=== PATIENT | female | born 1970 | race American Indian/Alaskan Native ===

== ENCOUNTER 2016-09-15 14:58 | Emergency (ER) | payer BC ==
--- NOTE | 2016-09-15 18:27 | Emergency Department Report ---
Chief Complaint: Dizziness Stated Complaint: ELEVATED BP/LIGHT HEADED Time Seen by Provider: 09/15/16 18:21 - HPI History of Present Illness: Patient here for new onset headache and dizziness testing going on for 3 weeks on and off. Patient had a headache this morning but she does have a headache now and she went to her primary care physician office last week and he did lab work but the lab work is not back at. She said when she stands up she is dizzy. Denies any fever or chills, denies any numbness or tingling to extremities. Denies any nausea vomiting. She said her blood pressure has been elevated without any diagnosis of high blood pressure. - ROS Review of Systems: All systems are negative unless stated in HPI above. - Exam Vital Signs: Vital Signs 09/15/16 15:08 Temperature 98.6 F Pulse Rate 60 Blood Pressure 147/77 O2 Sat by Pulse 100 Oximetry Physical Exam: General: This is a 38-year-old female well-nourished well-developed in no acute distress. Mini-Neurological exam: Speech is clear and fluent, no facial drooping, normal gait. GCS of 15 the patient is alert and oriented 3 MSE screening note: Focused history and physical exam performed. Due to findings the following was ordered:[facility] ED Medical Decision Making - Medical Decision Making Medical decision making: Patient medical screened by provider and appropriate labs and diagnostic tests ordered. She is stable waiting to see a provider. ED Disposition for MSE Condition: Stable Referrals: PRIMARY CARE [Primary Care Provider] - 3-5 Days
[2016-09-15 18:38] LABS: Basophils % (Auto) 0.6 % (0.0-1.8); Eosinophils % (Auto) 2.1 % (0.0-4.3); Hematocrit 42.6 % (30.3-42.9); Hemoglobin 13.9 gm/dl (10.1-14.3); Mean Corpuscular HGB Conc 33 % (30-34); Mean Corpuscular Volume 77 fl (79-97); Platelet Count 222 K/mm3 (140-440); Red Blood Count 5.53 M/mm3 (3.65-5.03); Red Cell Distribution Width 16.9 % (13.2-15.2); White Blood Count 9.2 K/mm3 (4.5-11.0)
[2016-09-15 18:41] LABS: Mean Corpuscular Hemoglobin 25 pg (28-32)
[2016-09-15 19:09] LABS: Alanine Aminotransferase 28 units/L (7-56); Albumin 4.3 g/dL (3.9-5); Alkaline Phosphatase 100 units/L (35-129); Anion Gap 16 mmol/L; Bilirubin,Total < 0.20 mg/dL (0.1-1.2); Blood Urea Nitrogen 11 mg/dL (7-17); Calcium 9.7 mg/dL (8.4-10.2); Carbon Dioxide 27 mmol/L (22-30); Chloride 99.7 mmol/L (98-107); Glucose 87 mg/dL (65-100); Potassium 3.9 mmol/L (3.6-5.0); Sodium 139 mmol/L (137-145); Total Protein 8.5 g/dL (6.3-8.2)
[2016-09-15 19:15] LABS: Bilirubin,Urine NEG (Negative); Blood,Urine NEG (Negative); Ketones,Urine NEG (Negative); Leukocyte Esterase,Urine NEG (Negative); Mucus,Urine FEW /HPF; Nitrite,Urine NEG (Negative); Protein,Urine <15 mg/dL mg/dL (Negative); Urobilinogen,Urine < 2.0 mg/dL (<2.0); WBC,Urine < 1.0 /HPF (0.0-6.0)
[2016-09-15 19:16] LABS: Bilirubin,Direct < 0.2 mg/dL (0-0.2)
--- NOTE | 2016-09-15 20:06 | Cat Scan Report ---
FINAL REPORT EXAM: CT HEAD/BRAIN WO CON HISTORY: headache and dizziness new onset TECHNIQUE: CT head without contrast PRIORS: None. FINDINGS: No acute intra-axial or extra-axial hemorrhage is identified. There is no evidence of midline shift or mass effect. The ventricles and sulci are within normal limits. Sullivan-white matter differentiation is intact. No acute parenchymal abnormalities seen. Bony calvarium is grossly intact. Visualized portions of the mastoids and paranasal sinuses are unremarkable. IMPRESSION: Negative CT head
[2016-09-15 20:35] VITALS: BP 140/86
--- NOTE | 2016-09-15 20:40 | Emergency Department Report ---
ED Dizziness HPI - General Chief Complaint: Dizziness Stated Complaint: ELEVATED BP/LIGHT HEADED Time Seen by Provider: 09/15/16 18:21 Source: patient Mode of arrival: Ambulatory Limitations: No Limitations - History of Present Illness Initial Comments: 46-year-old -[place] female comes in complaint of dizziness headache since about 3 weeks ago. Patient reports that it comes and goes. Patient reports she was seen by her doctor yesterday and was given Provera since she has not had a period in 3 years. Patient does report she has not seen a doctor in a year and a half since this provider. Patient denies any nausea no vomiting no fever no chills. Patient so this is probably her menopause. He currently has no past medical history currently takes no medications. She denies any pain at this time. MD Complaint: dizziness - Related Data Home Medications Medication Instructions Recorded Confirmed Last Taken No Known Home Medications [No 09/15/16 09/15/16 Unknown Reported Home Medications] Allergies Allergy/AdvReac Type Severity Reaction Status Date / Time acetaminophen Allergy Itching Verified 09/15/16 15:06 [From Tylenol-Codeine #3] codeine phosphate Allergy Itching Verified 09/15/16 15:06 [From Tylenol-Codeine #3] ED Review of Systems ROS: Stated complaint: ELEVATED BP/LIGHT HEADED Other details as noted in HPI Constitutional: denies: chills, fever Eyes: denies: eye pain, eye discharge, vision change ENT: denies: ear pain, throat pain Respiratory: denies: cough, shortness of breath, wheezing Cardiovascular: denies: chest pain, palpitations Endocrine: no symptoms reported Gastrointestinal: denies: abdominal pain, nausea, diarrhea Genitourinary: denies: urgency, dysuria, discharge Musculoskeletal: denies: back pain, joint swelling, arthralgia Skin: denies: rash, lesions Neurological: headache, other (dizziness) Psychiatric: denies: anxiety, depression Hematological/Lymphatic: denies: easy bleeding, easy bruising ED Past Medical Hx - Past Medical History Previous Medical History?: No - Surgical History Past Surgical History?: No - Social History Smoking Status: Never Smoker Substance Use Type: None - Medications Home Medications: Home Medications Medication Instructions Recorded Confirmed Last Taken Type No Known Home Medications [No 09/15/16 09/15/16 Unknown History Reported Home Medications] ED Physical Exam - General Limitations: No Limitations General appearance: alert, in no apparent distress - Head Head exam: Present: atraumatic, normocephalic - Eye Eye exam: Present: normal appearance - ENT ENT exam: Present: mucous membranes moist - Neck Neck exam: Present: normal inspection - Cardiovascular Cardiovascular Exam: Present: regular rate, normal rhythm. Absent: systolic murmur, diastolic murmur, rubs, gallop - GI/Abdominal GI/Abdominal exam: Present: soft, normal bowel sounds - Expanded Neurological Exam Expanded Cranial nerves: EOM's Intact: Normal, Gag Reflex: Normal, Tongue Deviation: Normal, Nystagmus: Normal, Facial Sensation: Normal, Facial Palsy with Forehead Movement: Normal, Facial Palsy without Forehead Movement: Normal Cerebellar function: Finger to Nose: Normal, Heel to Hay: Normal, Romberg: Normal Upper motor neuron: Pronator Drift: Normal, Sensory Extinction: Normal Sensory exam: Upper Extremity Light Touch: Normal, Upper Extremity Pin Prick: Normal, Upper Extremity Temperature: Normal, UE 2 Point Discrimination: Normal, Lower Extremity Light Touch: Normal, Lower Extremity Pin Prick: Normal, Lower Extremity Temperature: Normal, LE 2 Point Discrimination: Normal Motor strength exam: RUE: 5, LUE: 5, RLE: 5, LLE: 5 Best Eye Response (Lilia): (4) open spontaneously Best Motor Response (Lilia): (6) obeys commands Best Verbal Response ([place]): (5) oriented Lilia Total: 15 - Psychiatric Psychiatric exam: Present: normal affect, normal mood - Skin Skin exam: Present: warm ED Course Vital Signs 09/15/16 09/15/16 09/15/16 15:08 20:33 20:34 Temperature 98.6 F Pulse Rate 60 61 67 Respiratory 18 18 Rate Blood Pressure 147/77 Blood Pressure 154/78 140/86 [Left] O2 Sat by Pulse 100 100 100 Oximetry ED Medical Decision Making - Lab Data Result diagrams: 09/15/16 18:21 09/15/16 18:21 - Radiology Data Radiology results: report reviewed Normal exam - Medical Decision Making Patient has been evaluated by this provider fast track. Discussed with patient that we will do blood work as well as a CT scan of her head. Those are within normal limits discussed the patient she needs to follow-up with her primary care provider. She needs to be sure that she is drinking at least 8 glasses of water a day. Patient verbalized understanding. Critical care attestation.: If time is entered above; I have spent that time in minutes in the direct care of this critically ill patient, excluding procedure time. ED Disposition Clinical Impression: Dizziness Disposition: DISCHARGED TO HOME OR SELFCARE Is pt being admited?: No Does the pt Need Aspirin: No Condition: Stable Instructions: Dizziness (ED), Lightheadedness (ED) Additional Instructions: Please consume more water please. Please follow up with her primary care provider within the next 3-5 days. Return to the emergency room if symptoms persist or gets worse. Referrals: PRIMARY CARE,MD [Primary Care Provider] - 3-5 Days your,provider [Other] - 3-5 Days Forms: Work/School Release Form(ED)
== END 2016-09-15 21:39 | disposition home or self-care (01) ==
LOC: ED 14:58
DX: R42 Dizziness and giddiness (principal); Z88.6 Allergy status to analgesic agent
CPT/HCPCS: 36415; 70450; 80048; 80074; 81001; 84439; 84443; 85025; 93005; 93010